=== PATIENT | female | born 2000 | race Caucasian/White ===

== ENCOUNTER 2020-11-21 14:10 | Emergency (ER) | payer BC ==
--- NOTE | 2020-11-21 14:25 | EDM.PDOC ---
ED HPI GENERAL MEDICAL PROBLEM - General Stated Complaint: VERY DEHYDRATED Time Seen by Provider: 11/21/20 14:13 Source of Information: Reports: Patient, Significant Other History Limitations: Reports: No Limitations - History of Present Illness INITIAL COMMENTS - FREE TEXT/NARRATIVE: Patient presents with "dehydration" after vomiting around 15 times since last evening. Last emesis was 10 minutes ago. She had several alcohol drinks last evening that caused the vomiting she says. However it hasn't slowed down and now she feels weak and her legs are cramping. She denies fever, chest pain, marijuana use. Has mild abdominal pain throughout. Lower Leg Pain Score (Numeric/FACES): 5 - Related Data Allergies Allergy/AdvReac Type Severity Reaction Status Date / Time No Known Allergies Allergy Verified 11/21/20 15:07 ED ROS GENERAL - Review of Systems Review Of Systems: See Below Constitutional: Reports: Chills, Malaise, Weakness. Denies: Fever HEENT: Denies: Ear Pain, Throat Pain, Vision Change Respiratory: Denies: Shortness of Breath, Cough Cardiovascular: Denies: Chest Pain, Syncope GI/Abdominal: Reports: Nausea, Vomiting. Denies: Constipation, Diarrhea : Denies: Dysuria, Flank Pain Musculoskeletal: Reports: No Symptoms Skin: Denies: Cyanosis, Jaundice, Mottled, Pallor, Diaphoresis Neurological: Denies: Confusion, Dizziness, Headache, Seizure, Syncope, Trouble Speaking, Difficulty Walking Psychiatric: Denies: Agitation, Anxiety, Confusion ED EXAM, GI/ABD - Physical Exam Exam: See Below Exam Limited By: No Limitations General Appearance: Alert, WD/WN, No Apparent Distress Eyes: Bilateral: Normal Appearance, EOMI Ears: Normal External Exam, Hearing Grossly Normal Nose: Normal Inspection, No Blood Throat/Mouth: Normal Inspection, Normal Lips, Normal Voice, No Airway Compromise Head: Atraumatic, Normocephalic Neck: Normal Inspection, Full Range of Motion Respiratory/Chest: No Respiratory Distress, Lungs Clear, Normal Breath Sounds, No Accessory Muscle Use Cardiovascular: Regular Rate, Rhythm, No Murmur GI/Abdominal Exam: Normal Bowel Sounds, Soft, No Organomegaly, No Distention, Tender (mild, non-focal) Back Exam: Normal Inspection, Full Range of Motion. No: CVA Tenderness (L), CVA Tenderness (R) Extremities: Normal Inspection, Normal Range of Motion Neurological: Alert, Oriented, Normal Cognition, No Motor/Sensory Deficits Psychiatric: Normal Affect, Normal Mood Skin Exam: Warm, Dry, Intact, Normal Color, No Rash Course - Vital Signs Last Recorded V/S: Last Vital Signs Temp 99.3 F 11/21/20 14:15 Pulse 83 11/21/20 14:15 Resp 22 H 11/21/20 14:15 BP 127/71 11/21/20 14:15 Pulse Ox 99 11/21/20 14:15 - Orders/Labs/Meds Labs: Laboratory Tests 11/21/20 11/21/20 11/21/20 Range/Units 14:15 14:15 14:40 WBC 15.64 H (5.00-10.00) 10^3/uL RBC 4.03 (3.80-5.50) 10^6/uL Hgb 13.2 (12.0-16.0) g/dL Hct 38.1 (37.0-47.0) % MCV 94.5 H (82.0-92.0) fL MCH 32.8 H (27.0-31.0) pg MCHC 34.6 (32.0-36.0) g/dL RDW 12.0 (11.5-14.5) % Plt Count 331 (150-400) 10^3/uL MPV 9.0 (7.4-10.4) fL Immature Gran % (Auto) 0.1 (0.0-5.0) % Neut % (Auto) 77.7 H (50.0-70.0) % Lymph % (Auto) 15.2 L (20.0-40.0) % [place] % (Auto) 6.8 (2.0-8.0) % Eos % (Auto) 0.1 L (1.0-3.0) % Baso % (Auto) 0.1 (0.0-1.0) % Neut # (Auto) 12.14 H (2.50-7.00) 10^3/uL Lymph # (Auto) 2.38 (1.00-4.00) 10^3/uL [place] # (Auto) 1.07 H (0.10-0.80) 10^3/uL Eos # (Auto) 0.01 L (0.10-0.30) 10^3/uL Baso # (Auto) 0.02 (0.00-0.10) 10^3/uL Immature Gran # (Auto) 0.02 (0.00-0.50) 10^3/uL Sodium 145 (136-145) mmol/L Potassium 3.2 L (3.5-5.1) mmol/L Chloride 104 (98-107) mmol/L Carbon Dioxide 20.5 L (21.0-32.0) mmol/L Anion Gap 23.7 H (5-15) mmol/L BUN 11 (7-18) mg/dL Creatinine 0.48 L (0.51-1.17) mg/dL Est Cr Clr Drug Dosing TNP Estimated GFR (MDRD) > 60 mL/min Glucose 103 (70-140) mg/dL Calcium 8.9 (8.7-10.3) mg/dL Total Bilirubin 0.5 (0.2-1.0) mg/dL AST 45 H (15-37) U/L ALT 53 (14-63) U/L Alkaline Phosphatase 60 (46-116) U/L Total Protein 7.9 (6.4-8.2) g/dL Albumin 4.32 (3.40-5.00) g/dL Specimen Type Urinblad Urine Color Yellow (YELLOW) Urine Appearance Clear (CLEAR) Urine pH >= 9.0 (5.0-9.0) Ur Specific [place] 1.010 (1.005-1.030) Urine Protein 100 H (NEGATIVE) mg/dL Urine Glucose (UA) Negative (NEGATIVE) mg/dL Urine Ketones >=160 H (NEGATIVE) mg/dL Urine Occult Blood Negative (NEGATIVE) Urine Nitrite Negative (NEGATIVE) Urine Bilirubin Negative (NEGATIVE) Urine Urobilinogen 0.2 (0.2-1.0) E.U./dL Ur Leukocyte Esterase Negative (NEGATIVE) Urine RBC 0-5 (0-5) /HPF Urine WBC 5-10 H (0-5) /HPF Ur Epithelial Cells Moderate H /LPF Urine Bacteria Few (NONE TO FEW) /HPF Urine Mucus Many H (NEGATIVE) /LPF Meds: Medications Discontinued Medications Generic Name Dose Route Start Last Admin Trade Name Freq PRN Reason Stop Dose Admin Sodium Chloride 1,000 mls @ 999 mls/hr 11/21/20 14:19 11/21/20 14:31 Normal Saline IV 11/21/20 15:19 999 mls/hr .BOLUS ONE Administration Ondansetron HCl 4 mg 11/21/20 14:19 11/21/20 14:31 Ondansetron 4 Mg/2 Ml Sdv IVPUSH 11/21/20 14:20 4 mg ONETIME ONE Administration - Re-Assessments/Exams Free Text/Narrative Re-Assessment/Exam: 11/21/20 16:11 Some labs are elevated that I believe are secondary to her acute dehydration. She is feeling much better after the fluids and zofran. Nausea is gone. She wants to try drinking some water now. We discussed findings and recommendations. Departure - Departure Time of Disposition: 16:13 Disposition: Home, Self-Care 01 Condition: Good Clinical Impression: Dehydration, Nausea and vomiting in adult patient - Discharge Information Instructions: Nausea and Vomiting, Adult, [id number], Dehydration, Adult, [id number] Additional Instructions: Drink 8 cups of water daily. Follow up with your PCP if problems persist or worsen. Return to ER as needed. Sepsis Event Note (ED) - Focused Exam Vital Signs: Vital Signs Temp Pulse Resp BP Pulse Ox 11/21/20 14:15 99.3 F 83 22 H 127/71 99
[2020-11-21] MEDS: Ondansetron 4 MG/2 ML SDV IVPUSH ONE (14:31)
[2020-11-21] MEDS: Sodium Chloride 0.9% 1,000 ML IV ONE (14:31)
[2020-11-21 14:53] LABS: ANION GAP 23.7 mmol/L (5-15); CHLORIDE,CL 104 mmol/L (98-107); SODIUM,NA 145 mmol/L (136-145)
== END 2020-11-21 16:30 | disposition home or self-care (01) ==
LOC: KA.ED 14:10
DX: E86.0 Dehydration (principal)
CPT/HCPCS: 36415; 80053; 81001; 85025; 96374; 99283; 99284-25; J2405; J7030